=== PATIENT | male | born 1965 | race Caucasian/White ===

== ENCOUNTER 2021-03-02 05:59 | Emergency (ER) | payer SELFPAY ==
[2021-03-02 06:11] VITALS: BP 163/100; PULSE 90; RESP 20; TEMP 36.5; O2SAT 95; BMI 47.4
--- NOTE | 2021-03-02 06:40 | XRR_ITS ---
PROCEDURE INFORMATION: Exam: XR Chest Exam date and time: 03/02/2021 6:40 AM Age: 55 years old Clinical indication: Pain; Left-sided; Additional info: question l lower rib fracture anterior TECHNIQUE: Imaging protocol: XR of the chest. Views: 2 views. COMPARISON: No relevant prior studies available. FINDINGS: Lungs: Unremarkable. No consolidation. Pleural spaces: Unremarkable. No pleural effusion. No pneumothorax. Heart/Mediastinum: Unremarkable. No cardiomegaly. Bones/joints: No emergent findings identified. No rib fracture identified. XR/XR chest 2V* [id number] IMPRESSION: 1. No acute findings identified. Radiation Dose CTDIVOL = (mGy): DLP = (mGy-cm)
[2021-03-02] MEDS: acetaminophen 500 mg Tablet PO (06:46)
--- NOTE | 2021-03-02 06:52 | ED_ITS ---
HPI - General Adult General: Chief complaint: Chest Pain Stated complaint: Left side pain Time Seen by Provider: 03/02/21 06:22 History of Present Illness: HPI narrative: Patient is a 55-year-old male with a history of sinus infection presenting to the emergency room with complaints of left anterior lower rib pain after a bout of cough around 3 AM this morning. Patient says that since then, he thinks that he has cracked a rib after coughing has been complaining of left lower rib pain since then. Patient says that he has bouts of cough and nasal congestion for the last few days. Denies any fever or chills, productive sputum, nausea/vomiting, diarrhea. Patient declined to be tested for Covid today. Denies any muscle aches malaise or other complaints. Patient has no exertional chest pain, shortness of breath, pleuritic chest pain, hematemesis, recent surgery or immobilization. Chest pain is not tearing. No family hx of cardiac issues or hx of aneurysms. Onset: 3am Duration:ongoing Location:home Severity:mild/moderate Review of Systems Narrative: Constitutional: No fever, no chills. HEENT: No vision changes CV: No chest pain, no palpitations PULM: no cough, no dyspnea, +L lower chest pain GI: No abdominal pain, no N/V/D. : No dysuria MSKEL: No muscle pain SKIN: No new rashes, no lesions. NEURO: No headache, no focal weakness. HEME: No visible bruises PSYCH: Normal mood Physical Exam Narrative: EXAM NARRATIVE: Head: Atraumatic Eyes: PERRL, conjunctiva without injection ENT: Mucous membrane moist NECK: Supple, ROM intact LUNGS: LCTAB, no crackles/rhonchi CV: RRR ABDOMEN: Soft, nontender in all quadrants EXTREMITY: Normal ROM SKIN: No rash or erythema NEURO: Awake and alert, no focal motor deficits PSYCH: Normal mood and affect Course Vital Signs: Vital signs: Vital Signs Temperature 97.7 F 03/02/21 06:11 Pulse Rate 78 03/02/21 07:53 Respiratory Rate 17 03/02/21 07:53 Blood Pressure 163/100 03/02/21 06:11 Pulse Oximetry 97 03/02/21 07:53 MDM - General Adult MDM Narrative: Medical decision making narrative: 55M presenting to the ED for complaint of L lower anterior rib pain. LCTAB. XR negative for acute fracture Doubt ACS/PE or other emergent causes of chest pain since symptom onset is associated with cough. No suspicion for aortic dissection given no widened mediastinum, 2+ upper extremity pulses, or tearing pain. No suspicion for PE given no pleuritic chest pain, recent immobilization or surgery hemoptysis, or other VTE risk factors. EKG is non-ischemic. XR normal. Rx guafensin PRN cough and tylenol PRN pain Disposition: Discharge. Patient counseled regarding diagnostic impression, treatment plan. Patient given ED strict return precautions to return for continuation, worsening, or development of new symptoms. Instructed to f/u w/ PCP regarding symptoms today. Patient verbalized understanding. Imaging Data^: Other Imaging: Radiologist's impression: [address] [id number] ReportSigned Patient: Devyn Patel #: [id number]: 1965Acct#:[id number]/Sex: 55 / MADM Date: 03/02/21Loc: ERRoom/Bed:Attending Dr: Ordering Provider/Ordering MD: Vinny Muñoz MD Date of Service: 03/02/21 Procedure(s): XR chest 2V* [id number] Accession Number(s): [id number] Report Number: [id number] PROCEDURE INFORMATION: Exam: XR Chest Exam date and time: 03/02/2021 6:40 AM Age: 55 years old Clinical indication: Pain; Left-sided; Additional info: question l lower rib fracture anterior TECHNIQUE: Imaging protocol: XR of the chest. Views: 2 views. COMPARISON: No relevant prior studies available. FINDINGS: Lungs: Unremarkable. No consolidation. Pleural spaces: Unremarkable. No pleural effusion. No pneumothorax. Heart/Mediastinum: Unremarkable. No cardiomegaly. Bones/joints: No emergent findings identified. No rib fracture identified. XR/XR chest 2V* [id number] IMPRESSION: 1. No acute findings identified. Radiation Dose CTDIVOL = (mGy): DLP = (mGy-cm) Dictated By:Suraj Salter MDSigned By:Suraj Salter MDSigned Date/Time:03/02/21 0848DD/ 0640 Discharge Plan Discharge Patient Disposition: Home Clinical Impression: Cough, Chest pain Condition: Stable Prescriptions: New acetaminophen 500 mg tablet 500 mg PO Q6H PRN (Reason: pain) 5 Days Qty: 20 RF: 0 Mucinex 600 mg tablet extended release 12hr 600 mg PO BID PRN (Reason: vomiting) 7 Days Qty: 14 RF: 0 Discharge Orders: Discharge ED (Routine); Ordered 03/02/21 Ordered By: Vinny Muñoz Referrals: Karthikeyan Calhoun DO [Primary Care Provider] - Discharge Diet: Advance as tolerated Discharge Activity: Resume usual activity Patient Instructions: Chest Pain (ED), Acute Cough (ED) Activity Restrictions/Additional Instructions: Come back to the emergency room if your chest pain worsens, have any fever or chills, worsening shortness of breath, worsening exertional lightheadedness, or any new or concerning complaints. Here are the other suggestions for cough: Take mucinex as needed Drink green tea Stay hydrated Use a cough drop Have some honey (every few hours) Use a humidifier Elevate your bed when you sleep Apply menthol scented balm to your nose to decongest Stand Alone Forms: Work/School Release Coding Level of Care Code ED Retail Manager In Training for Sunitha Bacon
[2021-03-02] MEDS: guaiFENesin 600 mg Tablet PO (07:19)
[2021-03-02 07:53] VITALS: PULSE 78; RESP 17; O2SAT 97
== END 2021-03-02 07:54 | disposition home or self-care (01) ==
PROVIDERS: Emergency Provider Emergency Medicine; PCP Internal Medicine
DX: R07.9 Chest pain, unspecified (principal); R05.9 Cough, unspecified
CPT/HCPCS: 71046; 99283

== ENCOUNTER 2021-08-12 12:18 | Emergency (ER) | payer SELFPAY ==
[2021-08-12 12:51] VITALS: BP 162/90; PULSE 66; RESP 16; TEMP 36.5; O2SAT 94; BMI 46.3
--- NOTE | 2021-08-12 13:15 | CT_ITS ---
WS: [id number] CT HEAD TECHNIQUE: Noncontrast CT of the head obtained from the skullbase to the vertex. CLINICAL INFORMATION: AMS COMPARISON: None. DLP: 984.[address] scans at [facility] use at least one of these dose optimization techniques: automated e xposure control; mA and/or kV adjustment per patient size (includes targeted exams where dose is matc hed to clinical indication); or iterative reconstruction. FINDINGS: No evidence of intracranial hemorrhage or mass effect. Ventricular system and basal cisterns are gibson nt. Minimal small vessel changes. No extra-axial fluid collections. No evidence of mass or mass effec t. Normal ryan-white differentiation. Paranasal sinuses and mastoid air cells are well aerated. .Normal visualized soft tissues. CT/CT head wo con* [id number] IMPRESSION: 1. No evidence of intracranial hemorrhage or mass effect. 2. Minimal small vessel changes. 3. No acute intracranial findings.
--- NOTE | 2021-08-12 13:15 | ECG_ITS ---
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 Measurements Intervals [place] Rate: 75 P: 26 [place]: 183 QRS: -24 QRSD: 130 T: 4 QT: 391 QTc: 437 Interpretive Statements SINUS RHYTHM BORDERLINE LEFT AXIS DEVIATION [QRS AXIS < -20] POSSIBLE LEFT VENTRICULAR HYPERTROPHY [VOLTAGE CRITERIA PLUS LAE OR QRS WIDENING] No previous ECG available for comparison Electronically Signed On 08-12-2021 17:09:31 CDT by Valentino Rodas M.D. [id number]
[2021-08-12] MEDS: lactated ringers 1,000 ML 999 ML IV (13:22)
--- NOTE | 2021-08-12 13:27 | ED_ITS ---
HPI - Weakness General: Chief complaint: Weakness Stated complaint: Dizziness, nauseous Time Seen by Provider: 08/12/21 13:05 Source: patient Mode of arrival: ambulatory Limitations: no limitations History of Present Illness: 56-year-old male who presents to the emergency room with complaints of feeling lightheaded dizzy and weak. He was mowing his yard this morning on a riding mower began to feel what he describes as weird and dizzy very weak he went to lay down actually felt like he was stumbling a little bit. He had a hard time even drinking through a straw for a bit he got nauseated for a time but never actually threw up states the room was spinning. All of that is really resolved at this point. He has not had any chest pain or abdominal pain. Patient has no known history of coronary artery disease he is not diabetic. MD Complaint: generalized weakness Onset (ago): minute(s) Duration: intermittent and now resolved Severity: moderate Relieving factors: rest Exacerbating factors: exertion Associated symptoms: Reports nausea; Denies chest pain, chills, confusion, melena, decreased appetite, diaphoresis, dysuria, easy bruising, fever(s), headache(s), myalgias, rash, short of breath, syncope or vomiting Review of Systems Const: Denies: fever(s), chills or diaphoresis ENMT: Denies: throat pain, ear or mastoid pain, nasal discharge or nasal congestion Card: Denies: chest pain, palpitations, irregular heart rhythm or syncope Resp: Denies: dyspnea, productive cough or non-productive cough GI: Reports: nausea; Denies: abdominal pain, vomiting or melena : Denies: flank pain, difficulty urinating, dysuria, urinary frequency or urinary urgency Skin/Breast: Denies: rash or pruritus Neuro: Denies: headache(s) or confusion Maxx/Lymph: Denies: easy bruising PFS ED PFSH: Medical History (Updated 08/12/21 @ 13:33 by Bj June DO) Hyperlipidemia Social History (Updated 08/12/21 @ 13:33 by Bj June DO) Smoking and tobacco status: never smoked Alcohol intake: unknown Physical Exam Const: COMMON NORMALS: no acute distress GENERAL APPEARANCE: cooperative and comfortable ORIENTATION/CONSCIOUSNESS: Yes awake, Yes oriented to person, Yes oriented to place and Yes oriented to time HENMT: COMMON NORMALS: normocephalic, atraumatic and hearing grossly normal bilaterally HEAD & SCALP: normocephalic and atraumatic Neck/C-Spine: COMMON NORMALS: no JVD Resp: COMMON NORMALS: normal respiratory effort, No retractions, No use of accessory muscles and clear to auscultation bilaterally AUSCULTATION: clear to auscultation bilaterally Cardio: COMMON NORMALS: no JVD, regular rate, regular rhythm and No murmurs present (Cardio) RATE: regular rate RHYTHM: regular rhythm GI: COMMON NORMALS: Soft to palpation and No hepatosplenomegaly present AUSCULTATION: Yes normoactive bowel sounds PALPATION: Yes Soft to palpation, No Tenderness to palpation present (GI), No Guarding due to palpation present (GI) and Yes No hepatosplenomegaly present Extremity: COMMON NORMALS: normal to inspection, capillary refill normal, no clubbing, cyanosis or edema, no calf tenderness and no pedal edema Neuro: SENSORIUM/ORIENTATION: Yes oriented to person, Yes oriented to place and Yes oriented to time Skin: COMMON NORMALS: no rashes or lesions noted GENERAL SKIN EXAM: no r ashes or lesions noted Course Vital Signs: Vital signs: Vital Signs Temperature 97.7 F 08/12/21 12:51 Pulse Rate 69 08/12/21 13:30 Respiratory Rate 16 08/12/21 12:51 Blood Pressure 171/82 08/12/21 13:30 Pulse Oximetry 96 08/12/21 13:30 MDM - Weakness Medical Decision Making EKGs when he arrived done prior to here had shown atrial fibrillation he is not in A. fib now he is not shown any A. fib since he arrived here. He is completely asymptomatic blood pressures not allow for starting beta-filippo. At this point we will go and discharge home set up for an outpatient echocardiogram 48-hour Holter monitor and referral to cardiology. If he has any worsening symptoms return to the emergency room. Medical Records I reviewed the patient's medical records. Lab Data I reviewed the patient's lab results. : 08/12/21 13:20 08/12/21 13:[address] 08/12/21 13:15 IMPRESSION: 1. No evidence of intracranial hemorrhage or mass effect. 2. Minimal small vessel changes. 3. No acute intracranial findings. Laboratory Results WBC 5.0 10^3/uL (4.0-10.0) 08/12/21 13:20 RBC 5.26 10^6/uL (4.1-5.3) 08/12/21 13:20 Hgb 15.6 g/dL (11.7-16.6) 08/12/21 13:20 Hct 46.1 % (42.0-52.0) 08/12/21 13:20 MCV 87.6 fl (80-94) 08/12/21 13:20 MCH 29.7 pg (28.0-34.0) 08/12/21 13:20 MCHC 33.8 g/dL (30.0-36.0) 08/12/21 13:20 RDW 12.4 % (12.1-15.1) 08/12/21 13:20 Plt Count 119 10^3/cmm (130-400) L 08/12/21 13:20 MPV 12.0 fL (7.4-10.4) H 08/12/21 13:20 Neut % (Auto) 72.4 % 08/12/21 13:20 Lymph % (Auto) 16.3 % 08/12/21 13:20 Pettis % (Auto) 8.7 % 08/12/21 13:20 Eos % (Auto) 1.6 % 08/12/21 13:20 Baso % (Auto) 0.6 % 08/12/21 13:20 Neut # (Auto) 3.59 10^3/uL (1.8-7.7) 08/12/21 13:20 Lymph # (Auto) 0.8 10^3/uL (0.8-4.8) 08/12/21 13:20 Pettis # (Auto) 0.4 10^3/uL (0.2-0.9) 08/12/21 13:20 Eos # (Auto) 0.1 10^3/uL (0.0-0.8) 08/12/21 13:20 Baso # (Auto) 0.0 10^3/uL (0.0-0.1) 08/12/21 13:20 Nucleated RBC % (auto) 0 % 08/12/21 13:20 Nucleated RBCs # 0.0 /100WBC 08/12/21 13:20 Sodium 139 mmol/L (136-145) 08/12/21 13:20 Potassium 3.9 mmol/L (3.5-5.1) 08/12/21 13:20 Chloride 104 mmol/L (98-107) 08/12/21 13:20 Carbon Dioxide 25 mmol/L (22-29) 08/12/21 13:20 Anion Gap 13.9 (5-19) 08/12/21 13:20 BUN 17 mg/dL (6-20) 08/12/21 13:20 Creatinine 0.9 mg/dL (0.7-1.2) 08/12/21 13:20 GFR Calculation 87.0 mL/min (90-130) L 08/12/21 13:20 Glucose 124 mg/dL (65-115) H 08/12/21 13:20 Calculated Osmolality 291 mOsm/kg (285-295) 08/12/21 13:20 Calcium 9.4 mg/dL (8.5-10.5) 08/12/21 13:20 Total Bilirubin 0.6 mg/dL (0.15-1.2) 08/12/21 13:20 AST 23 U/L (0-40) 08/12/21 13:20 ALT 41 U/L (0-41) 08/12/21 13:20 Alkaline Phosphatase 60 IU/L (40-130) 08/12/21 13:20 Creatine Kinase 134 U/L (39-308) 08/12/21 13:20 Total Protein 6.7 g/dL (6.6-8.7) 08/12/21 13:20 Albumin 4.5 g/dL (3.5-5.2) 08/12/21 13:20 Globulin 2.2 g/dL (1.3-4.6) 08/12/21 13:20 Discharge Plan Discharge Condition: Stable Prescriptions: No Action atorvastatin 80 mg tablet 80 mg PO DAILY 0RF Prilosec OTC 20 mg Tablet,Delayed Release (Dr/Ec) 20 mg PO DAILY 0RF sildenafil (pulm.hypertension) 20 mg Tablet 20 mg PO TID 0RF Rx Instructions: administer doses at least 4-6 hours apart Referrals: Karthikeyan Calhoun DO [Primary Care Provider] - Coding Level of Care Code ED Product Applications Engineer for Chg Fwd Exam Comprehensive
[2021-08-12 13:30] VITALS: BP 171/82; PULSE 69; O2SAT 96
[2021-08-12 13:48] LABS: Basophils % 0.6 %; Eosinophils # 0.1 10^3/uL (0.0-0.8); Eosinophils % 1.6 %; Hematocrit 46.1 % (42.0-52.0); Hemoglobin 15.6 g/dL (11.7-16.6); Lymphocytes # 0.8 10^3/uL (0.8-4.8); Lymphocytes % 16.3 %; Mean Corpuscular HGB Conc 33.8 g/dL (30.0-36.0); Mean Corpuscular Hemoglobin 29.7 pg (28.0-34.0); Mean Corpuscular Volume 87.6 fl (80-94); Monocytes # 0.4 10^3/uL (0.2-0.9); Monocytes % 8.7 %; Neutrophils # 3.59 10^3/uL (1.8-7.7); Neutrophils % 72.4 %; Nucleated Red Blood Cells % 0 %; Platelet Count 119 10^3/cmm (130-400); Red Blood Count 5.26 10^6/uL (4.1-5.3); Red Cell Distribution Width 12.4 % (12.1-15.1)
[2021-08-12 14:00] VITALS: BP 157/80; O2SAT 98
[2021-08-12 14:07] LABS: Alanine Aminotransferase 41 U/L (0-41); Albumin Level 4.5 g/dL (3.5-5.2); Alkaline Phosphatase 60 IU/L (40-130); Anion Gap 13.9 (5-19); Aspartate Amino Transferase 23 U/L (0-40); Blood Urea Nitrogen 17 mg/dL (6-20); Calcium 9.4 mg/dL (8.5-10.5); Carbon Dioxide 25 mmol/L (22-29); Chloride 104 mmol/L (98-107); Creatine Phosphokinase 134 U/L (39-308); Globulin 2.2 g/dL (1.3-4.6); Glucose 124 mg/dL (65-115); Osmolality Calculated 291 mOsm/kg (285-295); Potassium 3.9 mmol/L (3.5-5.1); Sodium 139 mmol/L (136-145); Total Bilirubin 0.6 mg/dL (0.15-1.2); Total Protein 6.7 g/dL (6.6-8.7)
[2021-08-12 15:00] VITALS: BP 177/71; O2SAT 97
[2021-08-12 16:00] VITALS: BP 160/65; O2SAT 94
== END 2021-08-12 17:29 | disposition home or self-care (01) ==
PROVIDERS: Emergency Provider Family Medicine; PCP Internal Medicine
DX: R42 Dizziness and giddiness (principal); E78.5 Hyperlipidemia, unspecified
CPT/HCPCS: 70450; 80053; 82550; 85025; 93005; 96360; 99284